=== PATIENT | female | born 1960 | race Caucasian/White ===

== ENCOUNTER 2022-10-02 10:14 | Observation (INO) | payer OTHER, MEDICAID, SELFPAY ==
[2022-10-02] VITALS (14 sets, daily range): BP systolic 111–183; BP diastolic 58–102; PULSE 46–106; RESP 14–44; TEMP 35.8–38.2; O2SAT 88–100; BMI 22.8
--- NOTE | 2022-10-02 10:35 | DI.RAD.S_ITS ---
PROCEDURE: XR CHEST 1V INDICATIONS: suspected sepsis TECHNIQUE: One view of the chest was acquired. COMPARISON: [facility], , CHEST 1 VIEW, 05/03/2015, 20:08. FINDINGS: Surgical changes and devices: None. Lungs and pleura: Lungs are clear. No pleural effusions or pneumothorax. Mediastinum: Mediastinal contours appear normal. Heart size is normal. Bones and chest wall: No suspicious bony lesions. Overlying soft tissues appear unremarkable. IMPRESSION: No acute cardiopulmonary disease. Dictated by: Trinity Domínguez M.D. on 10/02/2022 at 11:32 Approved by: Trinity Domínguez M.D. on 10/02/2022 at 11:33
[2022-10-02 11:00] LABS: Hematocrit 41.2 % (36-46); Hemoglobin 13.7 g/dL (12.0-16.0); Mean Corpuscular HGB Conc 33.3 % (30-36); Mean Corpuscular Hemoglobin 29.4 PG (26-34); Mean Corpuscular Volume 88.6 fL (80-100); Platelet Count 312 X10^3/uL (150-400); Red Blood Cell Count 4.65 X10^6/uL (4.0-5.2); Red Cell Distribution Width 13.8 % (11.6-14.8); White Blood Cell Count 9.4 X10^3/uL (4.5-11.0)
[2022-10-02 11:02] LABS: Add Manual Diff / Slide Review YES
[2022-10-02 11:05] LABS: INR 1.1 (0.9-1.3); Prothrombin Time 12.8 SECONDS (10.1-12.7)
[2022-10-02 11:08] LABS: Alanine Aminotransferase 20 IU/L (<35); Albumin 3.4 g/dL (3.5-5.0); Albumin Globulin Ratio 0.9 (1.0-2.8); Alkaline Phosphatase 167 U/L (38-126); Aspartate Aminotransferase 16 IU/L (14-36); BUN Creatinine Ratio 20.9 (6-22); Bilirubin Total 1.5 mg/dL (0.2-1.3); Blood Urea Nitrogen 18 mg/dL (7-17); Calcium 8.9 mg/dL (8.4-10.2); Carbon Dioxide 29 mmol/L (22-32); Chloride 83 mmol/L (98-107); Estimated Glomerular Filt Rate > 60 mL/min (>60); Globulin 3.8 g/dL (1.7-4.1); Lipase 21 U/L (23-300); PTT Partial Thromboplastin Tim 26 SECONDS (26-36); Potassium 4.1 mmol/L (3.4-5.1); Sodium 123 mmol/L (137-145); Total Protein 7.2 g/dL (6.3-8.2)
[2022-10-02 11:09] LABS: Lactate (Lactic Acid) 2.4 mmol/L (0.7-2.1)
[2022-10-02 11:18] LABS: HEMOLYSIS < 15 (0-50)
[2022-10-02 11:19] LABS: Glucose 624 mg/dL (80-110)
[2022-10-02 11:28] LABS: Neutrophils Absolute Manual 7050 /uL (3000-5900); Total Cells Counted 100
[2022-10-02 11:30] LABS: RBC Morphology Norm
[2022-10-02 11:31] LABS: Procalcitonin 0.32 ng/mL (<0.5)
[2022-10-02] MEDS: SODIUM CHLORIDE 0.9% 1,000 ML 1000 ML IV (11:41)
[2022-10-02 11:48] LABS: HCO3 VBG 28 mmol/L (23-28); PCO2 VBG 46.5 mmHg (45-50); PO2 VBG 27 mmHg (35-45); Total CO2 VBG 29 mmol/L (24-29); pH VBG 7.39 (7.33-7.43)
[2022-10-02 11:48] LABS: Ketones (Beta-Hydroxybutyrate) 0.47 mmol/L (<0.27)
[2022-10-02 11:49] LABS: Oxygen Saturation VBG 49 % (70-75)
--- NOTE | 2022-10-02 12:17 | PC.NURSE ---
Pt states she has been fighting this same thing for a while now. she was diagnosis with cellulitis, has taken antibiotics and when they are done, she feels better and looks better for a few day and then the same thing comes right back. Patient states she does not think this is cellutitis. rash is on left lower leg, skin is split and oozing. beginings of rash starting on right calf and right back of hand. pt states she did not take any OTC medications for this but did try smoking some meth and it did not help.
--- NOTE | 2022-10-02 12:22 | ED_ITS ---
HPI - Skin/Abscess/Foreign Bdy General Chief complaint: Skin/Abscess/Foreign Body Stated complaint: cellulitis Time Seen by Provider: 10/02/22 11:28 Source: patient Mode of arrival: Wheelchair History of Present Illness HPI narrative: This is a 62-year-old female with history of methamphetamine abuse, recurrent cellulitis, patient denies diabetes but is quite hyperglycemic today. Patient states she is reoccurrence of lower extremity rash or infection. She states it comes and goes it seems to get better with antibiotics will almost completely go away and then come back. She states her last antibiotics were a month ago. When asked if she would buy any anti yeast medication she thinks that she has mother is unsure she did not recognize the name Diflucharry. Patient has felt chilled home, subjective fevers. No chest pain today, occasional shortness of breath. She is had nausea but no vomiting. Loose stools overnight no black or blood she is aware. No urinary symptoms. She thinks she is dehydrated. She does use tobacco, occasional alcohol, states she uses marijuana and methamphetamine intermittently. She denies injecting any drugs. Patient does not have any daily meds patient is currently she was last on Bactrim. Related Data Home Medications Medication Instructions Recorded Confirmed No Known Home Medications 10/02/22 10/02/22 Allergies Allergy/AdvReac Type Severity Reaction Status Date / Time albendazole [ALBENDAZOLE] Allergy Mild Verified 10/02/22 10:30 codeine [CODEINE] Allergy Mild Verified 10/02/22 10:30 metronidazole [METRONIDAZOLE] Allergy Mild Verified 10/02/22 10:30 Review of Systems Review of Systems ROS Unobtainable: All systems reviewed & are unremarkable except as noted in HPI and below Patient History Medical History (Updated 10/02/22 @ 14:33 by Ernesto Paul DO) Polysubstance use disorder Surgical History (Updated 10/02/22 @ 14:33 by Ernesto Paul DO) History of tonsillectomy Social History household members: none Smoking Status: Current every day smoker alcohol intake: current Smoking Status: Current every day smoker alcohol intake frequency: holidays/special occasions only Substance Use Type: marijuana Exam Narrative Exam Narrative: GENERAL: Alert and oriented x three, female in mild distress HEENT: Head normocephalic, atraumatic, EOMI, pupils reactive, face symmetric, moist mucous membranes NECK: Supple, full range of motion CARDIOVASCULAR: Regular rate and rhythm without murmurs, rubs or gallops. RESPIRATORY: Breath sounds equal bilaterally, no wheezes rales or rhonchi. ABDOMEN: Soft, nontender. Normoactive bowel sounds all 4 quadrants. No guarding or rebound, rigidity, no mass : No CVA tenderness EXTREMITIES: Normal range of motion, no clubbing. Positive edema bilateral lower extremities. Neurovascularly intact. Patient has redness, skin breakdown that is patchy circumferential of the left lower leg with maculopapular erythematous bumps and hyperkeratotic skin. Patient has serous drainage. No purulent drainage appreciated. Patient has a patch of hyperkeratotic maculopapular lesions on the opposite right leg on the inner thigh without any skin breakdown or drainage. NEUROLOGICAL: Cranial nerves II through XII grossly intact. Moving all extremities SKIN: Warm, dry, no petechiae. See above. Initial Vital Signs Initial Vital Signs: Vital Signs Temperature 96.5 F L 10/02/22 10:30 Pulse Rate 106 H 10/02/22 10:30 Respiratory Rate 15 10/02/22 10:30 Blood Pressure 142/74 H 10/02/22 10:30 Pulse Oximetry 96 10/02/22 10:30 Oxygen Delivery Method 10/02/22 10:30 Course Orders Ordered: ED Orders 10/02/22 10:34 Consult to OIL PUMPER - Mat Packer Stat 10/02/22 10:35 XR chest 1V Stat 10/02/22 10:45 Complete Blood Count AUTO DIFF Stat Comprehensive Metabolic Panel Stat Ketones (Beta-Hydroxybutyrate) Stat Lactate (Lactic Acid) Stat Lipase Stat Partial Thromboplastin Time Stat Procalcitonin Stat Prothrombin Time INR Stat 10/02/22 11:33 Blood Culture Stat 10/02/22 11:35 VBG [Venous Blood Gas] Stat 10/02/22 11:56 EKG-12 Lead Stat 10/02/22 13:10 US periph venous low extrem bi Stat 10/02/22 13:13 COVID19 -Nasal RAPID/Pre-Proc Stat 10/02/22 13:30 UA Complete [Urinalysis and Microscopic] Stat Acetaminophen (Acetaminophen 325 Mg Tablet) 650 mg PO Q6H PRN PRN Reason: Fever/Mild Pain (1-3) Enoxaparin Sodium (Enoxaparin 40 Mg/0.4 Ml Syringe) 40 mg SUBCUT DAILY [facility] Hydromorphone HCl (Hydromorphone 1 Mg Inj) 1 mg IV Q4H PRN PRN Reason: Breakthrough Pain Piperacillin Sod/Tazobactam (Sod 3.375 gm/ Sodium Chloride) 100 mls @ 25 mls/hr IV Q8H [facility] Vancomycin HCl/Dextrose (Vancomycin) 1,500 mg in 300 mls @ 200 mls/hr IV NOW ONE Stop: 10/02/22 16:59 Last Admin: 10/02/22 16:03 Dose: 200 mls/hr Documented By: DANITA Vancomycin HCl (Vancomycin) 750 mg in 150 mls @ 150 mls/hr IV Q12H [facility] Naloxone HCl (Naloxone 0.4 Mg/Ml Vial) 0.2 mg IV Q2MIN PRN PRN Reason: Opiate Reversal Ondansetron HCl (Ondansetron 4 Mg/2 Ml Inj) 4 mg IV Q8HR PRN PRN Reason: Nausea And Vomiting Oxycodone HCl (Oxycodone Ir 5 Mg Tablet) 5 mg PO Q3H PRN PRN Reason: Pain, Moderate (4-6) Oxycodone HCl (Oxycodone Ir 10 Mg Tablet) 10 mg PO Q3H PRN PRN Reason: Pain, Severe (7-10) Vancomycin HCl (Vancomycin Trough) 1 request [facility] [id number] [facility] Stop: 10/04/22 03:31 Discontinued Medications Sodium Chloride (Normal Saline 0.9%) 1,000 mls @ 1,000 mls/hr IV BOLUS ONE Stop: 10/02/22 11:34 Last Infusion: 10/02/22 12:34 Dose: 0 mls/hr Documented By: Admin: 10/02/22 11:41 Dose: 1,000 mls/hr Documented By: NR Piperacillin Sod/Tazobactam (Sod 4.5 gm/ Sodium Chloride) 100 mls @ 200 mls/hr IV NOW ONE Stop: 10/02/22 12:23 Last Infusion: 10/02/22 13:52 Dose: 200 mls/hr Documented By: Admin: 10/02/22 13:15 Dose: 200 mls/hr Documented By: NR Vancomycin HCl/Dextrose (Vancomycin) 2,000 mg in 400 mls @ 200 mls/hr IV NOW ONE Stop: 10/02/22 14:25 Last Admin: 10/02/22 12:59 Dose: Not Given Documented By: NR Sodium Chloride (Normal Saline 0.9%) 1,700.97 mls @ 566.99 mls/hr 30 ml/kg infuse over 3 hr (1700.97 ml) IV NOW ONE Stop: 10/02/22 15:25 Last Admin: 10/02/22 12:57 Dose: 566.99 mls/hr Documented By: NR Vancomycin HCl/Dextrose (Vancomycin) 1,500 mg in 300 mls @ 200 mls/hr IV NOW ONE Stop: 10/02/22 14:14 Last Admin: 10/02/22 16:05 Dose: Not Given Documented By: DANITA Vital Signs Vital signs: Vital Signs - 8 hr 10/02/22 10:30 10/02/22 11:38 10/02/22 11:38 Temperature 96.5 F L Pulse Rate 106 H 64 Respiratory Rate 15 Blood Pressure 142/74 H 164/79 H Pulse Oximetry 96 93 Oxygen Delivery Method Room Air 10/02/22 12:00 10/02/22 12:28 10/02/22 12:28 Temperature Pulse Rate 99 H 103 H Respiratory Rate 39 H 40 H Blood Pressure 178/78 H Pulse Oximetry 97 98 Oxygen Delivery Method 10/02/22 12:39 10/02/22 12:40 10/02/22 12:40 Temperature Pulse Rate 46 L 101 H Respiratory Rate 14 Blood Pressure 170/79 H Pulse Oximetry 88 L 100 Oxygen Delivery Method 10/02/22 13:00 10/02/22 13:00 10/02/22 13:30 Temperature Pulse Rate 99 H Respiratory Rate 26 H Blood Pressure 170/79 H 157/80 H Pulse Oximetry 99 Oxygen Delivery Method 10/02/22 13:30 Temperature Pulse Rate 98 H Respiratory Rate 44 H Blood Pressure Pulse Oximetry 99 Oxygen Delivery Method MDM - Skin/Abscess/Foreign Bdy Lab Data Result diagrams: 10/02/22 10:45 10/02/22 10:45 Labs: Lab Results 10/02/22 10/02/22 10/02/22 Range/Units 10:45 10:45 10:45 WBC 9.4 (4.5-11.0) X10^3/uL RBC 4.65 (4.0-5.2) X10^6/uL Hgb 13.7 (12.0-16.0) g/dL Hct 41.2 (36-46) % MCV 88.6 (80-100) fL MCH 29.4 (26-34) PG MCHC 33.3 (30-36) % RDW 13.8 (11.6-14.8) % Plt Count 312 (150-400) X10^3/uL Neut % (Auto) Not Reportable Lymph % (Auto) Not Reportable [place] % (Auto) Not Reportable Eos % (Auto) Not Reportable Baso % (Auto) Not Reportable Lymph # (Auto) Not Reportable [place] # (Auto) Not Reportable Baso # (Auto) Not Reportable Total Counted 100 Seg Neutrophils % 60.0 (38-70) % Band Neutrophils % 15.0 H (3-7) % Lymphocytes % (Manual) 8.0 L (25-45) % Monocytes % (Manual) 14.0 H (2-11) % Basophils % (Manual) 1.0 (0-1) % Metamyelocytes % 2.0 H (-0) % Neutrophils # (Manual) 7050 H (3187-2303) /uL RBC Morphology Norm PT 12.8 H (10.1-12.7) SECONDS INR 1.1 (0.9-1.3) APTT 26 (26-36) SECONDS VBG pH (7.33-7.43) VBG pCO2 (45-50) mmHg VBG pO2 (35-45) mmHg VBG HCO3 (23-28) mmol/L VBG Total CO2 (24-29) mmol/L VBG O2 Saturation (70-75) % VBG Base Excess (0-4) mmol/L Sodium 123 L (137-145) mmol/L Potassium 4.1 (3.4-5.1) mmol/L Chloride 83 L (98-107) mmol/L Carbon Dioxide 29 (22-32) mmol/L BUN 18 H (7-17) mg/dL Creatinine 0.86 (0.52-1.04) mg/dL Estimated GFR > 60 (>60) mL/min BUN/Creatinine Ratio 20.9 (6-22) Glucose 624 H* (80-110) mg/dL Lactate (0.7-2.1) mmol/L Calcium 8.9 (8.4-10.2) mg/dL Total Bilirubin 1.5 H (0.2-1.3) mg/dL AST 16 (14-36) IU/L ALT 20 (<35) IU/L Alkaline Phosphatase 167 H (38-126) U/L Total Protein 7.2 (6.3-8.2) g/dL Albumin 3.4 L (3.5-5.0) g/dL Globulin 3.8 (1.7-4.1) g/dL Albumin/Globulin Ratio 0.9 L (1.0-2.8) Lipase 21 L (23-300) U/L Procalcitonin 0.32 (<0.5) ng/mL Urine Color Urine Appearance Urine pH (4.5-8.0) Ur Specific [place] (1.000-1.035) Urine Protein (Negative) Urine Glucose (UA) (Negative) g/dL Urine Ketones (NEGATIVE) Urine Occult Blood (Negative) Urine Nitrate (Negative) Urine Bilirubin (NEGATIVE) Urine Urobilinogen (0.2) E.U./dL Ur Leukocyte Esterase (NEGATIVE) Urine RBC (0-5/HPF) Urine WBC (0-5/HPF) Amorphous Sediment Urine Bacteria (None) Ur Culture Indicated? Ketones (<0.27) mmol/L SARS-CoV-2 (PCR) (Negative) 10/02/22 10/02/22 10/02/22 Range/Units 10:45 10:45 11:35 WBC (4.5-11.0) X10^3/uL RBC (4.0-5.2) X10^6/uL Hgb (12.0-16.0) g/dL Hct (36-46) % MCV (80-100) fL MCH (26-34) PG MCHC (30-36) % RDW (11.6-14.8) % Plt Count (150-400) X10^3/uL Neut % (Auto) Lymph % (Auto) [place] % (Auto) Eos % (Auto) Baso % (Auto) Lymph # (Auto) [place] # (Auto) Baso # (Auto) Total Counted Seg Neutrophils % (38-70) % Band Neutrophils % (3-7) % Lymphocytes % (Manual) (25-45) % Monocytes % (Manual) (2-11) % Basophils % (Manual) (0-1) % Metamyelocytes % (-0) % Neutrophils # (Manual) (2786-0639) /uL RBC Morphology PT (10.1-12.7) SECONDS INR (0.9-1.3) APTT (26-36) SECONDS VBG pH 7.39 (7.33-7.43) VBG pCO2 46.5 (45-50) mmHg VBG pO2 27 L (35-45) mmHg VBG HCO3 28 (23-28) mmol/L VBG Total CO2 29 (24-29) mmol/L VBG O2 Saturation 49 L (70-75) % VBG Base Excess 3.0 (0-4) mmol/L Sodium (137-145) mmol/L Potassium (3.4-5.1) mmol/L Chloride (98-107) mmol/L Carbon Dioxide (22-32) mmol/L BUN (7-17) mg/dL Creatinine (0.52-1.04) mg/dL Estimated GFR (>60) mL/min BUN/Creatinine Ratio (6-22) Glucose (80-110) mg/dL Lactate 2.4 H (0.7-2.1) mmol/L Calcium (8.4-10.2) mg/dL Total Bilirubin (0.2-1.3) mg/dL AST (14-36) IU/L ALT (<35) IU/L Alkaline Phosphatase (38-126) U/L Total Protein (6.3-8.2) g/dL Albumin (3.5-5.0) g/dL Globulin (1.7-4.1) g/dL Albumin/Globulin Ratio (1.0-2.8) Lipase (23-300) U/L Procalcitonin (<0.5) ng/mL Urine Color Urine Appearance Urine pH (4.5-8.0) Ur Specific [place] (1.000-1.035) Urine Protein (Negative) Urine Glucose (UA) (Negative) g/dL Urine Ketones (NEGATIVE) Urine Occult Blood (Negative) Urine Nitrate (Negative) Urine Bilirubin (NEGATIVE) Urine Urobilinogen (0.2) E.U./dL Ur Leukocyte Esterase (NEGATIVE) Urine RBC (0-5/HPF) Urine WBC (0-5/HPF) Amorphous Sediment Urine Bacteria (None) Ur Culture Indicated? Ketones 0.47 H (<0.27) mmol/L SARS-CoV-2 (PCR) (Negative) 10/02/22 10/02/22 10/02/22 Range/Units 13:13 13:16 13:30 WBC (4.5-11.0) X10^3/uL RBC (4.0-5.2) X10^6/uL Hgb (12.0-16.0) g/dL Hct (36-46) % MCV (80-100) fL MCH (26-34) PG MCHC (30-36) % RDW (11.6-14.8) % Plt Count (150-400) X10^3/uL Neut % (Auto) Lymph % (Auto) [place] % (Auto) Eos % (Auto) Baso % (Auto) Lymph # (Auto) [place] # (Auto) Baso # (Auto) Total Counted Seg Neutrophils % (38-70) % Band Neutrophils % (3-7) % Lymphocytes % (Manual) (25-45) % Monocytes % (Manual) (2-11) % Basophils % (Manual) (0-1) % Metamyelocytes % (-0) % Neutrophils # (Manual) (0244-5989) /uL RBC Morphology PT (10.1-12.7) SECONDS INR (0.9-1.3) APTT (26-36) SECONDS VBG pH (7.33-7.43) VBG pCO2 (45-50) mmHg VBG pO2 (35-45) mmHg VBG HCO3 (23-28) mmol/L VBG Total CO2 (24-29) mmol/L VBG O2 Saturation (70-75) % VBG Base Excess (0-4) mmol/L Sodium (137-145) mmol/L Potassium (3.4-5.1) mmol/L Chloride (98-107) mmol/L Carbon Dioxide (22-32) mmol/L BUN (7-17) mg/dL Creatinine (0.52-1.04) mg/dL Estimated GFR (>60) mL/min BUN/Creatinine Ratio (6-22) Glucose (80-110) mg/dL Lactate 3.6 H (0.7-2.1) mmol/L Calcium (8.4-10.2) mg/dL Total Bilirubin (0.2-1.3) mg/dL AST (14-36) IU/L ALT (<35) IU/L Alkaline Phosphatase (38-126) U/L Total Protein (6.3-8.2) g/dL Albumin (3.5-5.0) g/dL Globulin (1.7-4.1) g/dL Albumin/Globulin Ratio (1.0-2.8) Lipase (23-300) U/L Procalcitonin (<0.5) ng/mL Urine Color Yellow Urine Appearance Clear Urine pH 6.0 (4.5-8.0) Ur Specific [place] <=1.005 (1.000-1.035) Urine Protein Negative (Negative) Urine Glucose (UA) 2+ H (Negative) g/dL Urine Ketones Negative (NEGATIVE) Urine Occult Blood Trace-lysed (Negative) Urine Nitrate Negative (Negative) Urine Bilirubin Negative (NEGATIVE) Urine Urobilinogen 1.0 (0.2) E.U./dL Ur Leukocyte Esterase Negative (NEGATIVE) Urine RBC 0-1/hpf (0-5/HPF) Urine WBC None seen (0-5/HPF) Amorphous Sediment 2+ Urine Bacteria None seen (None) Ur Culture Indicated? Cult not indicated Ketones (<0.27) mmol/L SARS-CoV-2 (PCR) Negative (Negative) Point of Care Testing Glucose POC 500 Urine Dip Bedside Urine Glucose 1000 mg/dl Bedside Urine Bilirubin - Negative Bedside Urine Ketone - Negative Urine Specific [place] 1.010 Bedside Urine Occult Blood - Negative Bedside Urine pH 6 Bedside Urine Protein - Negative Bedside Urine Urobilinogen - Negative Bedside Urine Nitrite - Negative Bedside Urine Leukocytes - Negative Esterase Imaging Data Chest x-ray: Radiologist's Impression: [address] [id number] XRay Report Signed Patient: Neela Franklin MR#: [id number] : 1960 Acct:[id number] Age/Sex: 62 / F Date of Service: 10/02/22 Loc: ED Accession Number: [id number] ?? Procedure: XR chest 1V Ordering Provider: Mank,Alivia C D.O. PROCEDURE:? XR CHEST 1V ? INDICATIONS:? suspected sepsis ? TECHNIQUE:? One view of the chest was acquired.? ? COMPARISON:? [facility], , CHEST 1 VIEW, 05/03/2015, 20:08. ? FINDINGS:? ? Surgical changes and devices:? None.? ? Lungs and pleura:? Lungs are clear.? No pleural effusions or pneumothorax.? ? Mediastinum:? Mediastinal contours appear normal.? Heart size is normal.? ? Bones and chest wall:? No suspicious bony lesions.? Overlying soft tissues appear unremarkable.? ? IMPRESSION:? No acute cardiopulmonary disease.? ? ? Dictated by: Trinity Domínguez M.D. on 10/02/2022 at 11:32 ? ? Approved by: Trinity Domínguez M.D. on 10/02/2022 at 11:33?? ECG Data Attestation: I personally reviewed and interpreted this ECG as follows: Interpretation: Sinus rhythm rate of 90 9p are 118 QRS 84 and QTC 444. No acute ST elevation. No depression noted. MDM Narrative Medical decision making narrative: This is a 62-year-old female who presents with left lower leg extremity cellulitis as well as a little bit on her right. Patient does have a history of methamphetamine abuse, she meets septic criteria she is a bandemia 50, tachycardic she is been afebrile she is not been hypotensive she also has sign ificant hyperglycemia she does not have DKA today she has, bicarb is 29, her anion gap is 19 when corrected sodium corrected is 131, blood glucose was 624 patient received L of fluids recheck was still high on bedside monitor, 2 L for a total of 30 cc/kg bolus for infection as well as dehydration from hyperglycemia, patient covered with vanco and Zosyn. She states she is multiple antibiotic allergies can not tell me what they are but when told Zosyn and vancomycin she states they should be fine. She does not have a primary care. Discussed with hospitalist Dr. Paul who saw patient in the emergency department and accepts for observation. Dr. Paul does request DVT ultrasound. Discharge Plan Departure Patient Disposition: Admitted as Observation Clinical Impression: Hyperglycemia, Cellulitis of left leg, Bandemia Admit Date/Time: 10/02/22 13:33 Admit Provider: Ernesto Paul
[2022-10-02 12:52] LABS: Reflexed Lactate in 2 Hours Y
[2022-10-02] MEDS: SODIUM CHLORIDE 0.9% 1,700.97 ML 566.99 ML IV (12:57)
--- NOTE | 2022-10-02 13:10 | DI.US.S_ITS ---
PROCEDURE: US PERIPH VENOUS LOW EXTREM BI INDICATIONS: EDEMA TECHNIQUE: Real-time imaging, as well as color and pulse Doppler interrogation, were performed of the deep veins of both legs from the inguinal ligament to the popliteal fossa. COMPARISON: None. FINDINGS: Right: The common femoral, femoral and popliteal veins are normally compressible, and free of intraluminal thrombus. Color and pulse Doppler demonstrate normal phasic intravascular flow. There is normal augmentation response to distal compression maneuver. Left: The common femoral, femoral and popliteal veins are normally compressible, and free of intraluminal thrombus. Color and pulse Doppler demonstrate normal phasic intravascular flow. There is normal augmentation response to distal compression maneuver. IMPRESSION: No DVT in the bilateral lower extremities. Dictated by: Sebastian Murrell M.D. on 10/02/2022 at 14:27 Approved by: Sebastian Murrell M.D. on 10/02/2022 at 14:27
[2022-10-02] MEDS: PIPERACILLIN/TAZO 4.5 GM in SODIUM CHLORIDE 0.9% 100 ML IV (13:15)
[2022-10-02 13:34] LABS: COVID19 -Nasal RAPID Negative (Negative)
[2022-10-02 13:50] LABS: Lactate 2HR (Lactic Acid Rflx) 3.6 mmol/L (0.7-2.1)
--- NOTE | 2022-10-02 14:32 | P.HP_ITS ---
History of Present Illness History of Present Illness Date Patient Seen: 10/02/22 Time Patient Seen: 14:30 Chief complaint: cellulitis Narrative: 62 year old female with no known PMH, Methamphetamine use, presents with worsening leg pain and redness over the past few days. Patient states she has developed changes over her legs over the past two months, consistent with chronic wounds. She has been on several courses of oral antibiotics over that time frame. She stopped taking antibiotics about a month ago she thinks, last prescription was from 08/18 to 08/25 per outside record review of bactrim. She thought that worked really well but her symptoms have now returned. She has tried to go to wound care multiple times now, but each time gets discouraged by a long wait and leaves. She denies fevers, chills, chest pain, shortness of breath. She denies recent weight loss, polyuria or polydipsia. In the emergency room, she was hypertensive and mildly tachycardic in the low 100s, but the remainder of her vitals were unremarkable. DVT study was negative. Laboratory evaluation did not reveal leukocytosis but she did have 15% bands, laboratory evaluation was notable for a glucose of 624, with a sodium of 123 to a sodium of around 130. Lactate was slightly elevated at 2.4 which increased 3.6 on repeat. Total bilirubin was 1.5. DVT study was negative for DVT. Patient History Medical History (Updated 10/02/22 @ 14:33 by Ernesto Paul DO) Polysubstance use disorder Surgical History (Updated 10/02/22 @ 14:33 by Ernesto Paul DO) History of tonsillectomy Family & Social History Family History (Updated 10/02/22 @ 17:58 by Ernesto Paul DO) Mother No pertinent past medical history Father No pertinent past medical history Safety & Behavioral: Feels Safe in Current Yes Environment Been Physically Hurt or No Threatened By a Person Tobacco & Substance use: Smoking Status Current every day smoker alcohol intake frequency holiday/special occasion Substance Use Type marijuana Meds Home Medications and Allergies Home Medications Medication Instructions Recorded Confirmed Type No Known Home Medications 10/02/22 10/02/22 History Allergies Allergy/AdvReac Type Severity Reaction Status Date / Time albendazole [ALBENDAZOLE] Allergy Mild Verified 10/02/22 10:30 codeine [CODEINE] Allergy Mild Verified 10/02/22 10:30 metronidazole [METRONIDAZOLE] Allergy Mild Verified 10/02/22 10:30 Review of Systems Review of Systems Narrative: All other systems reviewed with the patient and are negative unless otherwise stated. Exam Vital Signs (past 8 hours): - 10/02/22 10:30 10/02/22 11:38 10/02/22 11:38 Temperature 96.5 F L Pulse Rate 106 H 64 Respiratory Rate 15 Blood Pressure 142/74 H 164/79 H Pulse Oximetry 96 93 Oxygen Delivery Method Room Air 10/02/22 12:00 10/02/22 12:28 10/02/22 12:28 Temperature Pulse Rate 99 H 103 H Respiratory Rate 39 H 40 H Blood Pressure 178/78 H Pulse Oximetry 97 98 Oxygen Delivery Method 10/02/22 12:39 10/02/22 12:40 10/02/22 12:40 Temperature Pulse Rate 46 L 101 H Respiratory Rate 14 Blood Pressure 170/79 H Pulse Oximetry 88 L 100 Oxygen Delivery Method 10/02/22 13:00 10/02/22 13:00 10/02/22 13:30 Temperature Pulse Rate 99 H Respiratory Rate 26 H Blood Pressure 170/79 H 157/80 H Pulse Oximetry 99 Oxygen Delivery Method 10/02/22 13:30 Temperature Pulse Rate 98 H Respiratory Rate 44 H Blood Pressure Pulse Oximetry 99 Oxygen Delivery Method Oxygen Delivery Method Room Air Narrative Exam Narrative: General:?Thin appearing female, chronically ill appearing in no acute distress. HEENT:? Normocephalic, atraumatic, extraocular muscles intact, oral pharynx is clear and mucous membranes are dry. Dentition is fair. Neck: supple and symmetric, trachea is midline, no cervical adenopathy. Negative for JVD Chest:? Normal AP diameter and contour without kyphoscoliosis, no tachypnea, equal chest rise bilaterally. Lungs:? CTA b/l no wheezing rhonchi or rales. Cardio:?RRR no m/r/g. Abdomen: S NT ND. Musculoskeletal:? Muscle strength and tone are equal within normal limits, no deformity. Extremities: bilateral lower extremity edema L >R. L leg with chronic venous stasis changes, maculopapular rash with underlying erythema, warmth and tenderness, pustules also present. Also areas of superficial ulcerations, most likely venous stasis in nature. R leg with small area medially of a purplish maculopapular rash. Hands also have a purplish papules which have been scratched. Skin:?As noted above. Rash predominantly in extremities, no lesions noted proximally. Neuro:? Alert and orientated x3,? sensation to touch intact in all extremities, no gross deficits noted of cranial nerves. Psych:? Patient has a well-kept appearance, appropriate affect, mental status attitude thought context and judgment are appropriate for age. Objective ECG Impression: Normal sinus rhythm without evidence of acute ischemia as interpreted by me. Labs Result Diagrams: 10/02/22 10:45 10/02/22 10:45 Labs: Laboratory Results - last 24 hr 10/02/22 10/02/22 10/02/22 10:45 10:45 10:45 WBC 9.4 RBC 4.65 Hgb 13.7 Hct 41.2 MCV 88.6 MCH 29.4 MCHC 33.3 RDW 13.8 Plt Count 312 Neut % (Auto) Not Reportable Lymph % (Auto) Not Reportable [place] % (Auto) Not Reportable Eos % (Auto) Not Reportable Baso % (Auto) Not Reportable Lymph # (Auto) Not Reportable [place] # (Auto) Not Reportable Baso # (Auto) Not Reportable Total Counted 100 Seg Neutrophils % 60.0 Band Neutrophils % 15.0 H Lymphocytes % (Manual) 8.0 L Monocytes % (Manual) 14.0 H Basophils % (Manual) 1.0 Metamyelocytes % 2.0 H Neutrophils # (Manual) 7050 H RBC Morphology Norm PT 12.8 H INR 1.1 APTT 26 VBG pH VBG pCO2 VBG pO2 VBG HCO3 VBG Total CO2 VBG O2 Saturation VBG Base Excess Sodium 123 L Potassium 4.1 Chloride 83 L Carbon Dioxide 29 BUN 18 H Creatinine 0.86 Estimated GFR > 60 BUN/Creatinine Ratio 20.9 Glucose 624 H* Lactate Calcium 8.9 Total Bilirubin 1.5 H AST 16 ALT 20 Alkaline Phosphatase 167 H Total Protein 7.2 Albumin 3.4 L Globulin 3.8 Albumin/Globulin Ratio 0.9 L Lipase 21 L Procalcitonin 0.32 Ketones SARS-CoV-2 (PCR) 10/02/22 10/02/22 10/02/22 10:45 10:45 11:35 WBC RBC Hgb Hct MCV MCH MCHC RDW Plt Count Neut % (Auto) Lymph % (Auto) [place] % (Auto) Eos % (Auto) Baso % (Auto) Lymph # (Auto) [place] # (Auto) Baso # (Auto) Total Counted Seg Neutrophils % Band Neutrophils % Lymphocytes % (Manual) Monocytes % (Manual) Basophils % (Manual) Metamyelocytes % Neutrophils # (Manual) RBC Morphology PT INR APTT VBG pH 7.39 VBG pCO2 46.5 VBG pO2 27 L VBG HCO3 28 VBG Total CO2 29 VBG O2 Saturation 49 L VBG Base Excess 3.0 Sodium Potassium Chloride Carbon Dioxide BUN Creatinine Estimated GFR BUN/Creatinine Ratio Glucose Lactate 2.4 H Calcium Total Bilirubin AST ALT Alkaline Phosphatase Total Protein Albumin Globulin Albumin/Globulin Ratio Lipase Procalcitonin Ketones 0.47 H SARS-CoV-2 (PCR) 10/02/22 10/02/22 13:13 13:16 WBC RBC Hgb Hct MCV MCH MCHC RDW Plt Count Neut % (Auto) Lymph % (Auto) [place] % (Auto) Eos % (Auto) Baso % (Auto) Lymph # (Auto) [place] # (Auto) Baso # (Auto) Total Counted Seg Neutrophils % Band Neutrophils % Lymphocytes % (Manual) Monocytes % (Manual) Basophils % (Manual) Metamyelocytes % Neutrophils # (Manual) RBC Morphology PT INR APTT VBG pH VBG pCO2 VBG pO2 VBG HCO3 VBG Total CO2 VBG O2 Saturation VBG Base Excess Sodium Potassium Chloride Carbon Dioxide BUN Creatinine Estimated GFR BUN/Creatinine Ratio Glucose Lactate 3.6 H Calcium Total Bilirubin AST ALT Alkaline Phosphatase Total Protein Albumin Globulin Albumin/Globulin Ratio Lipase Procalcitonin Ketones SARS-CoV-2 (PCR) Negative Assessment & Plan Assessment & Plan narrative: 1. Left leg cellulitis, acute on chronic, present on admission, in setting of c hronic venous stasis - continue zosyn and vancomycin, has tolerated zosyn thus far despite cephalos porin allergy. - US negative for DVT. - Continue pain control - wound care evaluation as an outpatient. - given appearance of her rash, consider underlying autoimmune etiology such as ? cryoglobulinemia, will send hepatitis serologies, MALINDA, cryoglobulin level. 2. Type 2 diabetes with hyperglycemia and pseudohyponatremia. - Glucose of 624 on admission. Will start lantus 10 units at bedtime with sliding scale. No acidosis on labs to suggest DKA. - A1c ordered. - continue normal saline infusion until sugars improved. 3. Polysubstance use - patient used methamphetamines yesterday, smokes tobacco, counseled on cessation. She declines nicotine patch at this time. 4. elevated BP without diagnosis of HTN - consider adding anti-hypertensives but possibly BP elevated in setting of p ain. Code: DNR, surrogate decision maker she states is her cousin. DVT: Lovenox Dispo: Patient is admitted under observation status. She will likely discharge home. I have utilized all available immediate resources to obtain, update, or review the patient's current medications. Time Spent With Patient Critical Care time: I spent a total of [] minutes of critical care time on this patient's care today; this time is exclusive of procedural time.
[2022-10-02 15:04] LABS: Appearance Urine UA CLEAR; Bilirubin Urine UA NEGATIVE (NEGATIVE); Color Urine UA YELLOW; Glucose Urine UA 2+ g/dL (Negative); Ketones Urine UA NEGATIVE (NEGATIVE); Leukocyte Esterase Urine UA NEGATIVE (NEGATIVE); Nitrite Urine UA NEGATIVE (Negative); Occult Blood Urine UA TRACE-LYSED (Negative); Protein Urine UA NEGATIVE (Negative); Specific Gravity Urine UA <=1.005 (1.000-1.035)
[2022-10-02 15:29] LABS: Amorphous Sediment Urine 2+; Bacteria Urine None Seen; Culture Indicated Urine Cult Not Indicated; RBC Urine 0-1/HPF (0-5/HPF); WBC Urine None Seen (0-5/HPF)
[2022-10-02] MEDS: VANCOMYCIN 1,500 MG/300 ML PIGGYBACK 200 MG IV (16:03)
[2022-10-02] MEDS: INSULIN LISPRO 100 UNIT/ML 3ML VIAL SUBCUT ×2 (16:52→20:43)
[2022-10-02] MEDS: SODIUM CHLORIDE 0.9% 1,000 ML 100 ML IV (19:00)
[2022-10-02 19:13] LABS: Lactate (Lactic Acid) 2.1 mmol/L (0.7-2.1)
[2022-10-02] MEDS: PIPERACILLIN/TAZO 3.375 GM in SODIUM CHLORIDE 0.9% 100 ML IV (20:31)
[2022-10-02] MEDS: INSULIN GLARGINE 100 UNIT/ML 3ML PEN 10 UNIT SUBCUT (20:43)
[2022-10-02 21:00] LABS: Reflexed Lactate in 2 Hours Y
[2022-10-02 21:32] LABS: Lactate 2HR (Lactic Acid Rflx) 1.9 mmol/L (0.7-2.1)
--- NOTE | 2022-10-02 23:12 | PC.NURSE ---
Addendum entered by Ranjana Marroquin R.N. 10/02/22 23:27: Left lower extremity Original Note:
--- NOTE | 2022-10-02 23:58 | PC.NURSE ---
Assessment at 1925 of the left lower extremity noted that wounds were weeping serous fluid. Normal saline 0.9% used to cleanse the wounds. Dressing applied using Xeroform petralatum gauze and Krilex. CHET Cummings notified and wound consult ordered to treat.
[2022-10-03] VITALS (10 sets, daily range): BP systolic 107–128; BP diastolic 55–66; PULSE 85–97; RESP 18–24; TEMP 36.9–37.5; O2SAT 94–97
[2022-10-03 00:59] LABS: Hepatitis B Surface Antigen NEGATIVE s/c (NEGATIVE)
[2022-10-03 01:25] LABS: Hep C Virus Ab w/Reflex Quant NEGATIVE s/c (NEGATIVE)
[2022-10-03] MEDS: VANCOMYCIN 750 MG/150 ML PIGGYBACK 150 MG IV ×2 (03:56→22:03)
[2022-10-03] MEDS: PIPERACILLIN/TAZO 3.375 GM in SODIUM CHLORIDE 0.9% 100 ML IV ×2 (05:08→15:02)
[2022-10-03 05:28] LABS: Hemoglobin 12.3 g/dL (12.0-16.0); Mean Corpuscular HGB Conc 33.2 % (30-36); Mean Corpuscular Hemoglobin 29.3 PG (26-34); Mean Corpuscular Volume 88.2 fL (80-100); Platelet Count 254 X10^3/uL (150-400); White Blood Cell Count 7.1 X10^3/uL (4.5-11.0)
[2022-10-03 05:31] LABS: Add Manual Diff / Slide Review YES
[2022-10-03 05:34] LABS: Alanine Aminotransferase 16 IU/L (<35); Albumin 2.9 g/dL (3.5-5.0); Albumin Globulin Ratio 0.9 (1.0-2.8); Alkaline Phosphatase 124 U/L (38-126); Aspartate Aminotransferase 16 IU/L (14-36); BUN Creatinine Ratio 23.5 (6-22); Bilirubin Total 0.6 mg/dL (0.2-1.3); Blood Urea Nitrogen 19 mg/dL (7-17); Calcium 8.5 mg/dL (8.4-10.2); Carbon Dioxide 26 mmol/L (22-32); Chloride 95 mmol/L (98-107); Estimated Glomerular Filt Rate > 60 mL/min (>60); Globulin 3.2 g/dL (1.7-4.1); Glucose 208 mg/dL (80-110); HEMOLYSIS < 15 (0-50); Magnesium 1.7 mg/dL (1.6-2.3); Potassium 3.7 mmol/L (3.4-5.1); Sodium 130 mmol/L (137-145); Total Protein 6.1 g/dL (6.3-8.2)
[2022-10-03 05:57] LABS: Neutrophils Absolute Manual 4118 /uL (3000-5900); Total Cells Counted 100
[2022-10-03 05:58] LABS: RBC Morphology Normal Morphology
[2022-10-03] MEDS: INSULIN LISPRO 100 UNIT/ML 3ML VIAL SUBCUT ×4 (08:47→22:04)
[2022-10-03] MEDS: MAGNESIUM CHLORIDE 64 MG TABLET 128 MG PO (10:01)
[2022-10-03] MEDS: SODIUM CHLORIDE 0.9% 1,000 ML 100 ML IV (10:01)
[2022-10-03] MEDS: ACETAMINOPHEN 325 MG TABLET 650 MG PO ×2 (10:13→22:03)
[2022-10-03] MEDS: valACYclovir 500 MG TABLET 1000 MG PO ×2 (15:02→22:03)
--- NOTE | 2022-10-03 16:31 | PC.NURSE ---
Clinician from wound care came to see the patient this afternoon. We attempted to place a soothing net dressing with absorbent pads but the soothing properties of the dressing made patient's wound burn very uncomfortably. Dressing was promptly removed and pt showered to wash off residue. Xeroform gauze and absorbent pads were used instead, once patient had returned to bed. Per wound care, dressing should be changed every other day or earlier as needed due to drainage.
--- NOTE | 2022-10-03 16:31 | DIET.PN1 ---
Dietary Progress Note Assessment: 62 y/o F admitted with left leg cellulitis, new T2DM, elevated BP with PMh polysubstance use. RD saw pt due to screen for BG and new dx of T2DM. Neela was admitted with a BG of 624 mg/dl and found to have a HgA1c of 11%. States this is a new diagnosis for her, and endorses FH of DM with her mother and 5 sisters. Also endorses recent increase thirst and frequent urination in evenings. Recent B, 484, 369, 264 mg/dl. Currently receiving 10u glargine with Lispro SSI. Neela reports she has been living in a tent over the last week in [place] due to the motor home she lived in previously being sold. States she does not have a phone. Utilizes [employer] and a food pantry for food resources. Some concerns for how she will manage her Dm in current living situation. If needing insulin, no refrigeration. No phone to contact PCP for appts. Discussed these concerns with CM. States her diet is unpredictable given her living situation. She may eat once per day or 4-5 times per day. Often chooses steak, potatoes, and veggies. loves salads. Recently having sugar cravings, ie cookies. Today Neela tells me it has been years since she has had a PCP, though she is open to this now. Current diet order 60g CHO. Ht: 157.48 cm Wt: 56.699 kg BMI: 22.8 UBW: Last BM: 10/02/22 (10/02/22 15:00) MNA: 10 [place] Score: 19 Diet: 10/02/22 Dinner Carbohydrate Consistent Diet Diet Modifications: Carbohydrate level: Large (4 CHO) Nutrition Percent Meal Consumed 100% 10/03/22 11:06 Percent Meal Consumed 100% 10/02/22 17:35 Labs: RBC 4.20 X10^6/uL (4.0-5.2) 10/03/22 05:00 Hgb 12.3 g/dL (12.0-16.0) 10/03/22 05:00 Hct 37.0 % (36-46) 10/03/22 05:00 Creatinine 0.81 mg/dL (0.52-1.04) 10/03/22 05:00 Hemoglobin A1c 11.0 % (4.0-6.0) H 10/03/22 05:00 Lactate 1.9 mmol/L (0.7-2.1) 10/02/22 21:10 Nutrition Diagnosis: Food insecurity r/t homelessness aeb pt report ; Nutrition and food related knowledge deficit r/t new dx of T2DM aeb HgA1c of 11% and pt report ; Predicted excessive CHO intake r/t sugar cravings and hyperglycemia aeb pt report ; Increased nutrient needs r/t cellulitis wound aeb H&P and RN notes Interventions: 1. Rishi BID to support wound healing 2. Will change diet order to CCD3 (45g CHO) 3. Provided diabetes education in brief (pathophysiology and plate method) 4. Rec if FBG continue above 180 mg/dl increase Lantus prn EER: 45g CHO per meal Monitoring/Evaluations: consul prn; rec OP DSME Electronically Signed by: Cris Chaney 10/03/22 16:31 Clinical Dietitian [address] [address]
--- NOTE | 2022-10-03 18:06 | PM.PN.1 ---
Subjective Subjective Date Patient Seen: 10/03/22 Time Patient Seen: 08:00 Interval history: She feels quite a bit better today Exam Vital Signs (past 8 hours): - 10/03/22 15:30 10/03/22 14:00 Temperature 98.6 F Pulse Rate 97 H Respiratory Rate 18 Blood Pressure 128/66 Pulse Oximetry 97 97 Oxygen Delivery Method Room Air Oxygen Delivery Method Room Air Oxygen Flow Rate 0 Narrative Exam Narrative: General:?no acute distress Lungs: clear bilaterally Cardio:?regular rate and rhythm Abdomen: soft, nontender, nondistended Extremities: left leg with skin breakdown with areas of confluent erythema with papules noted on periphery of rash, and plaques on back of left leg. R leg with small area medially of a purplish maculopapular rash. Hands also have a purplish papules which have been scratched. Objective Labs Result Diagrams: 10/03/22 05:00 10/03/22 05:00 Labs: Laboratory Results - last 24 hr 10/02/22 10/02/22 10/02/22 18:40 21:10 21:10 WBC RBC Hgb Hct MCV MCH MCHC RDW Plt Count Neut % (Auto) Lymph % (Auto) [place] % (Auto) Eos % (Auto) Baso % (Auto) Lymph # (Auto) [place] # (Auto) Baso # (Auto) Total Counted Seg Neutrophils % Band Neutrophils % Lymphocytes % (Manual) Atypical Lymphs % Monocytes % (Manual) Eosinophils % (Manual) Basophils % (Manual) Metamyelocytes % Neutrophils # (Manual) RBC Morphology Sodium Potassium Chloride Carbon Dioxide BUN Creatinine Estimated GFR BUN/Creatinine Ratio Glucose Hemoglobin A1c Lactate 2.1 1.9 Calcium Magnesium Total Bilirubin AST ALT Alkaline Phosphatase Total Protein Albumin Globulin Albumin/Globulin Ratio TSH Hep Bs Antigen Negative Hepatitis C Antibody Negative 10/03/22 10/03/22 10/03/22 05:00 05:00 05:00 WBC 7.1 RBC 4.20 Hgb 12.3 Hct 37.0 MCV 88.2 MCH 29.3 MCHC 33.2 RDW 14.0 Plt Count 254 Neut % (Auto) Not Reportable Lymph % (Auto) Not Reportable [place] % (Auto) Not Reportable Eos % (Auto) Not Reportable Baso % (Auto) Not Reportable Lymph # (Auto) Not Reportable [place] # (Auto) Not Reportable Baso # (Auto) Not Reportable Total Counted 100 Seg Neutrophils % 30.0 L Band Neutrophils % 28.0 H Lymphocytes % (Manual) 21.0 L Atypical Lymphs % 1.0 H Monocytes % (Manual) 14.0 H Eosinophils % (Manual) 2.0 Basophils % (Manual) 1.0 Metamyelocytes % 3.0 H Neutrophils # (Manual) 4118 RBC Morphology Normal morphology Sodium 130 L Potassium 3.7 Chloride 95 L Carbon Dioxide 26 BUN 19 H Creatinine 0.81 Estimated GFR > 60 BUN/Creatinine Ratio 23.5 H Glucose 208 H D Hemoglobin A1c 11.0 H Lactate Calcium 8.5 Magnesium 1.7 Total Bilirubin 0.6 AST 16 ALT 16 Alkaline Phosphatase 124 Total Protein 6.1 L Albumin 2.9 L Globulin 3.2 Albumin/Globulin Ratio 0.9 L TSH Hep Bs Antigen Hepatitis C Antibody 10/03/22 05:00 WBC RBC Hgb Hct MCV MCH MCHC RDW Plt Count Neut % (Auto) Lymph % (Auto) [place] % (Auto) Eos % (Auto) Baso % (Auto) Lymph # (Auto) [place] # (Auto) Baso # (Auto) Total Counted Seg Neutrophils % Band Neutrophils % Lymphocytes % (Manual) Atypical Lymphs % Monocytes % (Manual) Eosinophils % (Manual) Basophils % (Manual) Metamyelocytes % Neutrophils # (Manual) RBC Morphology Sodium Potassium Chloride Carbon Dioxide BUN Creatinine Estimated GFR BUN/Creatinine Ratio Glucose Hemoglobin A1c Lactate Calcium Magnesium Total Bilirubin AST ALT Alkaline Phosphatase Total Protein Albumin Globulin Albumin/Globulin Ratio TSH 1.00 Hep Bs Antigen Hepatitis C Antibody [facility] Medical History (Updated 10/02/22 @ 23:52 by CHET Jacobs) Cellulitis of lower extremity Polysubstance use disorder Surgical History (Updated 10/02/22 @ 14:33 by Ernesto Paul DO) History of tonsillectomy Family History (Updated 10/02/22 @ 17:58 by Ernesto Paul DO) Mother No pertinent past medical history Father No pertinent past medical history Social History household members: none Smoking Status: Current every day smoker alcohol intake: current Assessment & Plan Assessment & Plan narrative: 1. Left leg cellulitis, likely superinfection of other rash etiology - continue zosyn and vancomycin, has tolerated zosyn thus far despite cephalosporin allergy - ordered valtrex for herpes - ordered wound swab - US negative for DVT. - wound care evaluation as an outpatient. - given appearance of her rash, consider underlying autoimmune etiology such as ? cryoglobulinemia, will send hepatitis serologies, MALINDA, cryoglobulin level - will need dermatology referral on discharge for biopsy 2. Type 2 diabetes with hyperglycemia and pseudohyponatremia. - Glucose of 624 on admission. Will start lantus 10 units at bedtime with sliding scale. No acidosis on labs to suggest DKA. - A1c ordered. - continue normal saline infusion until sugars improved. 3. Polysubstance use - patient used methamphetamines yesterday, smokes tobacco, counseled on cessation. She declines nicotine patch at this time. 4. elevated BP without diagnosis of HTN - consider adding anti-hypertensives but possibly BP elevated in setting of pain. Time Spent With Patient Critical Care time: I spent a total of [] minutes of critical care time on this patient's care today; this time is exclusive of procedural time. Quality VTE Deep Vein Thrombosis/Pulmonary Embolism Present on Admission: No
[2022-10-03] MEDS: INSULIN GLARGINE 100 UNIT/ML 3ML PEN 10 UNIT SUBCUT (22:03)
[2022-10-04 00:11] VITALS: BP 116/58; PULSE 91; RESP 18; TEMP 36.1; O2SAT 93
[2022-10-04] MEDS: SODIUM CHLORIDE 0.9% 1,000 ML 100 ML IV (01:09)
[2022-10-04] MEDS: PIPERACILLIN/TAZO 3.375 GM in SODIUM CHLORIDE 0.9% 100 ML IV ×2 (01:15→09:22)
--- NOTE | 2022-10-04 01:51 | PC.NURSE ---
At approx 2300, pt reported pain from IV site on LAC. IV site clearly compromised, extravasated running vancomycin. Redness and swelling at the site. IV immediately stopped, checked for blood return (negative), removed catheter (intact). Redness marked and dated/timed. Applied dry warm compress and elevated limb. New IV inserted R ventral forearm. Contacted hospitalist and informed of situation and measures taken- no orders given. Rechecked IV site at 00:00, swelling and redness reduced. Pt reports no tenderness at site. Will continue to monitor.
[2022-10-04 02:00] VITALS: O2SAT 93
[2022-10-04 02:13] LABS: Hepatitis B Core Antibody Negative (Negative)
[2022-10-04 03:00] VITALS: BP 114/65; PULSE 74; RESP 18; TEMP 36.4; O2SAT 100
[2022-10-04] MEDS: valACYclovir 500 MG TABLET 1000 MG PO ×2 (05:52→14:32)
[2022-10-04 06:00] VITALS: O2SAT 100
[2022-10-04 06:40] LABS: Hepatitis B Surf Ab Qualitativ Non Reactive (.)
--- NOTE | 2022-10-04 06:54 | PC.NURSE ---
Pt refusing labs. Educated patient on importance of lab work and trending results. Pt continues to refuse, stating I don't care, I don't want anyone to poke my veins anymore.
[2022-10-04 07:00] VITALS: BP 124/66; PULSE 84; RESP 17; TEMP 36.9; O2SAT 96
[2022-10-04] MEDS: INSULIN LISPRO 100 UNIT/ML 3ML VIAL SUBCUT ×2 (09:20→12:19)
[2022-10-04 10:28] LABS: Vancomycin Trough 7.7 ug/mL (10-20)
[2022-10-04 10:46] LABS: Alanine Aminotransferase 15 IU/L (<35); Albumin 2.6 g/dL (3.5-5.0); Albumin Globulin Ratio 0.9 (1.0-2.8); Alkaline Phosphatase 129 U/L (38-126); Aspartate Aminotransferase 29 IU/L (14-36); BUN Creatinine Ratio 23.8 (6-22); Bilirubin Total 0.3 mg/dL (0.2-1.3); Blood Urea Nitrogen 15 mg/dL (7-17); Calcium 8.7 mg/dL (8.4-10.2); Carbon Dioxide 25 mmol/L (22-32); Chloride 103 mmol/L (98-107); Estimated Glomerular Filt Rate > 60 mL/min (>60); Glucose 244 mg/dL (80-110); HEMOLYSIS < 15 (0-50); Magnesium 1.7 mg/dL (1.6-2.3); Potassium 3.7 mmol/L (3.4-5.1); Sodium 135 mmol/L (137-145); Total Protein 5.6 g/dL (6.3-8.2)
[2022-10-04 11:30] VITALS: BP 135/70; PULSE 88; RESP 18; TEMP 36.6; O2SAT 95
--- NOTE | 2022-10-04 12:05 | PM.DS.1 ---
History of Present Illness History of Present Illness Date Patient Seen: 10/02/22 Time Patient Seen: 14:30 Chief complaint: cellulitis Narrative: Per admitting provider: 62 year old female with no known PMH, Methamphetamine use, presents with worsening leg pain and redness over the past few days. Patient states she has developed changes over her legs over the past two months, consistent with chronic wounds. She has been on several courses of oral antibiotics over that time frame. She stopped taking antibiotics about a month ago she thinks, last prescription was from 08/18 to 08/25 per outside record review of bactrim. She thought that worked really well but her symptoms have now returned. She has tried to go to wound care multiple times now, but each time gets discouraged by a long wait and leaves. She denies fevers, chills, chest pain, shortness of breath. She denies recent weight loss, polyuria or polydipsia. In the emergency room, she was hypertensive and mildly tachycardic in the low 100s, but the remainder of her vitals were unremarkable. DVT study was negative. Laboratory evaluation did not reveal leukocytosis but she did have 15% bands, laboratory evaluation was notable for a glucose of 624, with a sodium of 123 to a sodium of around 130. Lactate was slightly elevated at 2.4 which increased 3.6 on repeat. Total bilirubin was 1.5. DVT study was negative for DVT. Discharge Providers Provider Date of admission: 10/02/22 13:33 Discharge Date: 10/04/22 Primary care physician: Carlos Reece MD Consults: 10/02/22 10:34 Consult to [facility] - Plant Pathologist Stat Comment: 10/03/22 23:51 Consult to Inpatient Wound Care Nurse Routine Comment: Reason for consultation: bilateral leg wounds, non-injecting meth user Has provider been notified: No Discharge provider: Farooq Hurtado MD Summary Hospital Course Discharge Diagnosis: 1. Left leg cellulitis 2. Type 2 Diabetes with hyperglycemia 3. Polysubstance abuse 4. Elevated blood pressure Hospital Course: Ms. Franklin was admitted with a quite impressive left leg rash. She had findings consistent with cellulitis. But she also explained her rash as having episodes of waxing and waning and near resolution. She also had papules and plaques on the edges of her rash and scatter on her other extremities. I suspect she has a chronic dermatologic condition and that she presented and a super infection of this condition. She was feeling improved on antibiotics. She also discharged on a week of valtrex for possible herpetic infection. She is was referred to dermatology for consideration of further workup including biopsy. She was diagnosed with diabetes with elevated blood sugar and a1c and was recommended to start insulin, but declined at this time and wanted to discuss with PCP. She was given a prescription of metformin and encouraged to follow up within the week with her PCP. Exam Vital Signs (past 8 hours): Oxygen Delivery Method Room Air Oxygen Flow Rate 0 Narrative Exam Narrative: General:?no acute distress Lungs: clear bilaterally Cardio:?regular rate and rhythm Abdomen: soft, nontender, nondistended Extremities: left leg with skin breakdown with areas of confluent erythema with papules noted on periphery of rash, and plaques on back of left leg. R leg with small area medially of a purplish maculopapular rash. Hands also have a purplish papules which have been scratched. Objective Labs Result Diagrams: 10/04/22 12:05 10/04/22 09:42 Labs: Laboratory Results - last 24 hr 10/02/22 21:10 Anti-Nuclear Antibody Negative [facility] Medical History (Updated 10/02/22 @ 23:52 by CHET Jacobs) Cellulitis of lower extremity Polysubstance use disorder Surgical History (Updated 10/02/22 @ 14:33 by Ernesto Paul DO) History of tonsillectomy Family History (Updated 10/02/22 @ 17:58 by Ernesto Paul DO) Mother No pertinent past medical history Father No pertinent past medical history Social History household members: none Smoking Status: Current every day smoker alcohol intake: current Discharge Plan Discharge Plan Patient Disposition: Home Provider Discharge Comment: Ms. Frnaklin was admitted with a skin infection. She improved with antibiotics. She is given an additional week of antibiotics. She should follow up with her PCP within one week. Please call [facility] at to setup an appointment to biopsy your leg. Discharge orders & Medications Prescriptions: New valacyclovir 500 mg Tablet 1,000 mg PO Q8H Qty: 18 0RF doxycycline hyclate 100 mg tablet 100 mg PO BID Qty: 14 0RF levofloxacin 750 mg tablet 750 mg PO DAILY Qty: 5 0RF metformin 850 mg tablet 850 mg PO BID Qty: 60 0RF Follow up/Referrals: [facility] [Provider Group] - 1 Week (left leg rash with pustules, plaques, skin breakdown) Carlos Reece MD [Primary Care Provider] - 3-5 Days (new diabetic, declined starting insulin, also cellulitis) Diet/Activity/Treatments Diet: Carb-consistent/Diabetic Visit Report/Discharge Packet Instructions: DI for Cellulitis -- Adult, DI for Hyperglycemia -- Adult, Enoxaparin Injection Discharge Data Primary Care Provider: Carlos Reece Attending Provider: Ernesto Paul VTE Deep Vein Thrombosis/Pulmonary Embolism Present on Admission: No
[2022-10-04] MEDS: VANCOMYCIN TROUGH 1 REQUEST MISC (12:21)
[2022-10-04 12:26] LABS: Add Manual Diff / Slide Review NO; Basophils Absolute Auto 0 /uL (0-100); Basophils Percent Auto 0.7 % (0-2); Eosinophils Absolute Auto 600 /uL (0-450); Eosinophils Percent Auto 9.2 % (2-4); Hematocrit 33.1 % (36-46); Hemoglobin 11.1 g/dL (12.0-16.0); Lymphocytes Absolute Auto 1000 /uL (1100-4500); Lymphocytes Percent Auto 17.2 % (25-40); Mean Corpuscular HGB Conc 33.6 % (30-36); Mean Corpuscular Hemoglobin 29.6 PG (26-34); Mean Corpuscular Volume 88.1 fL (80-100); Monocytes Absolute Auto 900 /uL (0-900); Monocytes Percent Auto 14.7 % (3-14); Neutrophils Absolute Auto 3500 /uL (1500-7000); Neutrophils Percent Auto 58.2 % (50-75); Platelet Count 244 X10^3/uL (150-400); Red Blood Cell Count 3.76 X10^6/uL (4.0-5.2); Red Cell Distribution Width 13.8 % (11.6-14.8)
--- NOTE | 2022-10-04 13:27 | CM.DANOTE ---
Initial DCP Assessment Note Pt is a 62 yo female, currently homeless and sleeping in her tent which is located in the [facility] in [place]. According to ER Note: history of methamphetamine abuse, recurrent cellulitis, patient denies diabetes but is quite hyperglycemic today. Patient states she is reoccurrence of lower extremity rash or infection. She states it comes and goes it seems to get better with antibiotics will almost completely go away and then come back. PCP: Carlos Reece Payer: [employer]/[facility] Reviewed chart, recommendation from team is f/u w/PCP, wound care and w/outpatient life educator (newly dx Diabetes) however barriers to care include substance abuse, housing instability, no phone and transport via public transit vs hitch hiking vs friend vehicle Patient discharged this morning so met with patient to review plan. Patient intends to discharge back to her tent and requests this APPARATUS OPERATOR assist with 1. Transport and 2. Clean clothes to leave in [facility], kindly agreed to assist in the coordination of getting clean clothes to patient in partnership with house keeping Placed call to patient's cousin Gavino per patient's request. He plans to pick patient up at 1430 If Gavino does not show up; [facility] transport vs taxi voucher may be considered Patient denies additional needs and denies need for additional resources. Patient familiar with [facility] in [place], halfway and food, states she doesn't need halfway because she stays with people Plan: DC back to friend's vs tent via pov, close outpatient f/u recommended. Unfortunately, unable to assist patient in securing these appts on [place] [facility] DEZ Li Discharge Planning/Care Management CM Discharge Assessment Start: 10/04/22 13:23 Freq: Status: Active Protocol: Document 10/04/22 13:24 JENNY (Rec: 10/04/22 13:27 JENNY [id number]) Discharge Planning Assessment Assigned Digital Marketing Officer DEZ Tracy DPOA/Assigned Designee Name elizabeth Winters Contact Information [phone] Advance Directives? No History Provided By Patient Prior Living Arrangements Homeless Comment TENT Household Members none Type of transporation used prior to Public Transportation admit Independent with ADL's Yes Is patient alert and oriented? Yes Barriers to Discharge No Comment See narrative Discharge Plan Homeless Intermediate Transportation Arrangement Family to transport Referrals Initiated None needed
[2022-10-07 16:29] LABS: ANA Screen, IFA Negative (.)
[2022-10-17 15:21] LABS: IFE Result, Cryoprecipitant Comment: (.)
--- NOTE | 2022-10-18 15:13 | PC.NURSE ---
Late Entry: Vancomycin infusion initiated 10/02 at 1603 complete at 1734.
== END 2022-10-04 15:09 | disposition home or self-care (01) ==
LOC: ED 11:28 → AC 13:33
PROVIDERS: Admitting Provider Internal Medicine; Emergency Provider Emergency Medicine; Family Provider Specialist; PCP Specialist; Referring Provider Emergency Medicine; Visit Provider Internal Medicine
DX: L03.116 Cellulitis of left lower limb (principal); F19.90 Other psychoactive substance use, unspecified, uncomplicated; F15.10 Other stimulant abuse, uncomplicated; F12.90 Cannabis use, unspecified, uncomplicated; Z72.0 Tobacco use; R03.0 Elevated blood-pressure reading, without diagnosis of hypertension; E11.65 Type 2 diabetes mellitus with hyperglycemia; Z20.822 Contact with and (suspected) exposure to COVID-19
CPT/HCPCS: 36415; 71045; 80053; 80202; 81001; 81003; 82009; 82595; 82805; 82962; 83036; 83605; 83690; 83735; 84145; 84443; 85007; 85025; 85610; 85730; 86038; 86704; 86706; 86803; 87040; 87070; 87075; 87077; 87147; 87186; 87205; 87340; 87635; 93005; 93970; 96361; 96365; 96366; 96367; 96372; 99285; C9803; G0378; J1815; J2543

== ENCOUNTER 2022-10-19 16:31 | Emergency (ER) | payer OTHER, MEDICAID, SELFPAY ==
[2022-10-02 14:35] VITALS: BMI 22.8
[2022-10-19 16:34] VITALS: BP 172/93; PULSE 108; RESP 18; TEMP 37.3; O2SAT 99; BMI 23.3
[2022-10-19 17:11] VITALS: PULSE 100; RESP 20; O2SAT 98
--- NOTE | 2022-10-19 17:13 | PC.NURSE ---
rainbow and single set of blood cx obtained and sent to lab if needed, no orders yet. pt in [place] chair on pulse ox monitor resp even unlabored nad speaking in full sentances, airway patent and no facial/oral swelling noted, redness noted to cheeks/nose without edema
--- NOTE | 2022-10-19 17:39 | ED.SKABFB ---
HPI - Skin/Abscess/Foreign Bdy General Chief complaint: Skin/Abscess/Foreign Body Stated complaint: allergic reaction to medication Time Seen by Provider: 10/19/22 17:39 Source: patient Mode of arrival: Ambulatory Limitations: no limitations History of Present Illness HPI narrative: 62F smoker with diabetes and chronic left leg infection presents with symptoms consistent with possible reaction to medication. She states that about a week ago she was placed on doxycycline for chronic redness and discomfort in her left leg and concern about possibly of infection. Within a few days she started developing rash on her palms and redness on her face at which point she presented to another facility and was instructed to stop taking the doxycycline and she was given antihistamines and states it has significantly improved. She presents today stating that she wanted to be evaluated. She admits that her symptoms across the border significantly improved and she has no face swelling, tongue swelling or difficulty swallowing, she has no involvement in her mouth and no trouble breathing. She does still have some redness on her face but it is significantly improved over when she was seen a few days ago. She denies chest pain or shortness of breath and has no GI symptoms such as nausea, vomiting or diarrhea. She does have some redness of her left lower extremity but denies any swelling and states that it in many ways is similar to how it has looked since at least May. She states that she did recently have ultrasound that showed no clot and had been referred to wound care but has not heard back from them yet Related Data Previous Rx's Medication Instructions Recorded doxycycline hyclate 100 mg tablet 100 mg PO BID #14 tabs 10/04/22 levofloxacin 750 mg tablet 750 mg PO DAILY #5 tabs 10/04/22 metformin 850 mg tablet 850 mg PO BID #60 tabs 10/04/22 valacyclovir 500 mg tablet 1,000 mg PO Q8H #18 tabs 10/04/22 clindamycin HCl 300 mg capsule 300 mg PO Q8H #30 caps 10/19/22 Allergies Allergy/AdvReac Type Severity Reaction Status Date / Time albendazole [ALBENDAZOLE] Allergy Mild Verified 10/02/22 10:30 codeine [CODEINE] Allergy Mild Verified 10/02/22 10:30 metronidazole [METRONIDAZOLE] Allergy Mild Verified 10/02/22 10:30 amitriptyline AdvReac Mild Verified 10/19/22 16:57 cephalexin AdvReac Mild Verified 10/19/22 16:57 clonazepam AdvReac Mild Verified 10/19/22 16:57 gabapentin [From Neurontin] AdvReac Mild Verified 10/19/22 16:57 hydroxyzine AdvReac Mild Verified 10/19/22 16:57 prednisone AdvReac Mild Verified 10/19/22 16:57 sulfamethoxazole AdvReac Mild Verified 10/19/22 16:57 [From Bactrim] trimethoprim [From Bactrim] AdvReac Mild Verified 10/19/22 16:57 valacyclovir AdvReac Mild Verified 10/19/22 16:58 Review of Systems Review of Systems Narrative: GENERAL: See HPI HEENT: See HPI RESPIRATORY: See HPI CARDIOVASCULAR: Denies chest pain, palpitations, orthopnea, edema, GASTROINTESTINAL: Denies nausea, vomiting, abdominal pain, diarrhea, constipation, melena. : Denies dysuria, frequency, incontinence, hematuria, urinary retention. MUSCULOSKELETAL: denies weakness, joint pain, or bony pain SKIN: See HPI NEUROLOGIC: Denies weakness, headache, numbness, change in speech, confusion, seizures, incoordination. PSYCHIATRIC: No concerning psychosocial issues. 12 point review of systems is negative except for those stated above Patient History Medical History Cellulitis of lower extremity Polysubstance use disorder Surgical History History of tonsillectomy Family History Mother No pertinent past medical history Father No pertinent past medical history Social History household members: none Smoking Status: Current every day smoker alcohol intake: current Smoking Status: Current every day smoker tobacco type: cigarettes alcohol intake frequency: holidays/special occasions only Substance Use Type: marijuana and methamphetamine Exam Narrative Exam Narrative: GENERAL: [62] year old patient appears stated age. Thin, no obvious active distress HEAD: Atraumatic. Normocephalic. EYES: Pupils equal round and reactive. Extraocular motions intact. No scleral icterus. No injection or drainage. ENT: No intraoral involvement, sloughing, erythema, blistering or ulcerations Nose without bleeding, purulent drainage. Throat without erythema, tonsillar hypertrophy or exudate. Airway patent. NECK: Trachea midline. Non tender CARDIOVASCULAR: Regular rate and rhythm without murmurs, gallops, or rubs. RESPIRATORY: Decreased breath sounds bilaterally with prolonged expiratory phase GASTROINTESTINAL: Abdomen soft, non-tender, nondistended. EXTREMITIES: No edema or joint tenderness. BACK: Nontender without deformity or crepitance. No flank tenderness. NEURO: AOx3. SKIN: Erythema to face without blisters, edema, negative Nikolsky use, no lip, tongue swelling. Dried, scaling skin on palms of bilateral hands. Left lower extremity with dark erythematous appearance when compared to the right, sensation intact, warm to touch, no sloughing, ulcerations or breaks in the skin. Patient states this is relatively stable appearance Initial Vital Signs Initial Vital Signs: Vital Signs Temperature 99.2 F 10/19/22 16:34 Pulse Rate 108 H 10/19/22 16:34 Respiratory Rate 18 10/19/22 16:34 Blood Pressure 172/93 H 10/19/22 16:34 Pulse Oximetry 99 10/19/22 16:34 Oxygen Delivery Method 10/19/22 16:34 Course Vital Signs Vital signs: Vital Signs - 8 hr 10/19/22 18:29 Pulse Rate 97 H Respiratory Rate 18 Blood Pressure 175/90 H Pulse Oximetry 98 Oxygen Delivery Method Room Air MDM - Skin/Abscess/Foreign Bdy MDM Narrative Medical decision making narrative: [62-year-old female smoker with significantly improved symptoms after what sounds like allergic reaction to doxycycline as well as perhaps acute on chronic infectious process in her left lower leg] Multiple etiologies for patient's symptoms considered including, but not limited to: [Medication reaction, Valiente-Nikita, cellulitis, DVT versus other] Prior Charts reviewed: Including prior emergency department visits from September of this year Patient with significant improved symptoms after reaction to doxycycline, encouraged ongoing use of antihistamines as needed for allergic type reaction. Furthermore given her description of potential acute on chronic left lower extremity symptoms she is given prescription for clindamycin based on recent culture, referral sent to Wound Care Patient's symptoms improved over duration of stay with above-stated therapies. Findings and discharge diagnosis discussed with patient/family followed by verbalization of understanding Return precautions discussed with patient/family whom verbalize understanding of diagnosis and plan Discharge Plan Departure Patient Disposition: Home Clinical Impression: Cellulitis of lower extremity, Medication adverse effect Instructions: DI for Cellulitis -- Adult Activity Restrictions/Additional Instructions: *You have been diagnosed with [ acute on chronic cellulitis of left lower extremity and possible medication reaction] *What to do: *Please continue to take your regular medications as directed. [ x] New medication prescriptions sent to your pharmacy: [[facility] ] [ ] New medication written as a paper prescription [ ] No new medications given *Please follow up with your primary care provider in 2-3 days, call for an appointment. Let them know you were seen in the Emergency Department and that we ask that you be seen in follow up. We will electronically transmit a record of today's note if your PCP is in our system *Please consider the routine use of over the counter antihistamines over the next few days 1. H1 blockers: Benadryl (Diphenhydramine), Zyrtec (Cetirizine), Monalisa (Fexofenadine) or Claritin (Loratadine) along with, 2. H2 blockers: Famotidine or Cimetidine *If you can please avoid what triggered your reaction today *Please follow up with your primary care provider in 2-3 days, call for an appointment. Let them know you were seen in the Emergency Department and that we ask that you be seen in follow up. We will electronically transmit a record of today's note if your PCP is in our system *If you do not have a primary care provider please contact the [facility] Resource line at [phone]. They will ask some questions about your medical history and help get you set up with a doctor in the community. *Return to Emergency Department if you should have any new, worsening or concerning symptoms, such as swelling of tongue, throat, trouble breathing, or other concerning symptoms Prescriptions: New clindamycin HCl 300 mg capsule 300 mg PO Q8H Qty: 30 0RF No Action valacyclovir 500 mg Tablet 1,000 mg PO Q8H Qty: 18 0RF doxycycline hyclate 100 mg tablet 100 mg PO BID Qty: 14 0RF levofloxacin 750 mg tablet 750 mg PO DAILY Qty: 5 0RF metformin 850 mg tablet 850 mg PO BID Qty: 60 0RF Referrals: Mukul Grey MD [Non-Staff] - Carlos Reece MD [Primary Care Provider] - Stand Alone Forms: Patient Portal/API
[2022-10-19 17:44] VITALS: PULSE 101; RESP 18; O2SAT 98
[2022-10-19 18:29] VITALS: BP 175/90; PULSE 97; RESP 18; O2SAT 98
== END 2022-10-19 18:35 | disposition home or self-care (01) ==
PROVIDERS: Emergency Provider Emergency Medicine; Family Provider Specialist; PCP Specialist
DX: L03.116 Cellulitis of left lower limb (principal); T36.4X5A Adverse effect of tetracyclines, initial encounter; Z79.899 Other long term (current) drug therapy
CPT/HCPCS: 36415; 99283